=== PATIENT | male | born 1955 | race Caucasian/White ===

== ENCOUNTER 2018-12-01 16:42 | Observation (INO) | payer MEDICARE, OTHER ==
[~2018-12-01] VITALS: Ht 175.3 cm; Wt 93.5 kg
[2018-12-01] MEDS ORDERED: ASPIRIN 81 MG TABLET CHEW PO ONE (17:00)
[2018-12-01] MEDS ORDERED: SODIUM CHLORIDE FLUSH 10ML SYR IVF ONE (17:00)
[2018-12-01 17:14] LABS: BASOPHILS # (AUTO) 0.01 x10^3/uL (0-0.1); BASOPHILS % (AUTO) 0 % (0-1); EOSINOPHILS # (AUTO) 0.18 x10^3/uL (0-0.4); EOSINOPHILS % (AUTO) 2 % (1-7); LYMPHOCYTES # (AUTO) 1.43 x10^3/uL (1-3.4); LYMPHOCYTES % (AUTO) 16 % (22-44); MD NO; MEAN CORPUSCULAR HGB CONC 33.7 g/dL (33.2-36.2); MEAN CORPUSCULAR VOLUME 91.9 fL (81-97); MEAN PLATELET VOLUME 9.4 fL (7.4-10.4); MONOCYTES # (AUTO) 1.09 x10^3/uL (0.2-0.8); MONOCYTES % (AUTO) 12 % (2-9); NEUTROPHILS # (AUTO) 6.41 x10^3/uL (1.8-6.8); NEUTROPHILS % (AUTO) 70 % (42-75); PLATELET COUNT 139 x10^3/uL (130-400); RED BLOOD COUNT 4.02 x10^6/uL (4.38-5.82); RED CELL DISTRIBUTION WIDTH 14.9 % (9.4-14.8)
[2018-12-01] MEDS ORDERED: ASPIRIN 81 MG TABLET CHEW ONE (17:14)
[2018-12-01 17:26] LABS: ALBUMIN 3.7 g/dL (3.4-5.0); ANION GAP 6 mmol/L (5-15); CALCIUM 8.7 mg/dL (8.5-10.1); CHLORIDE 110 mmol/L (98-107); CREATININE 1.33 mg/dL (0.7-1.3)
[2018-12-01 17:30] LABS: TROPONIN I < 0.015 ng/mL (0.000-0.045)
[2018-12-01] MEDS ORDERED: ONDANSETRON 2MG/ML, 2ML IVPush PRN (18:30)
[2018-12-01] MEDS ORDERED: hydrALAzine 20 MG/ML, 1ML IVPush PRN (18:30)
[2018-12-01] MEDS ORDERED: SODIUM CHLORIDE FLUSH 10ML SYR IVF PRN (18:30)
[2018-12-01] MEDS ORDERED: ASPI-515 PO (18:45)
[2018-12-01] MEDS ORDERED: ATOR40TA PO (18:45)
[2018-12-01] MEDS ORDERED: METO-95 PO (18:45)
[2018-12-01] MEDS ORDERED: LOSA25TA25 PO ×2 (18:45)
[2018-12-01] MEDS ORDERED: NITR0.6T4 SL (18:46)
[2018-12-01] MEDS ORDERED: NITROGLYCERIN OINT 2%, 1GM TP ONE (18:50)
[2018-12-01] MEDS: NITROGLYCERIN OINT 2%, 1GM TP SCH (19:30)
[2018-12-01 20:15] VITALS: BP 144/86
[2018-12-01] MEDS ORDERED: LOSARTAN 25MG TABLET PO SCH (21:00)
[2018-12-01] MEDS ORDERED: ATORVASTATIN 40 MG TABLET PO SCH (21:00)
[2018-12-01] MEDS ORDERED: ASPIRIN 81 MG TABLET EC PO SCH (21:00)
[2018-12-01] MEDS ORDERED: METOPROLOL SUCCINATE 100 MG TAB.ER.24H PO SCH (21:00)
[2018-12-01 23:14] LABS: TROPONIN I < 0.015 ng/mL (0.000-0.045)
[2018-12-02 01:17] VITALS: BP 102/66
[2018-12-02] MEDS: NITROGLYCERIN OINT 2%, 1GM TP SCH ×3 (01:28→13:30)
[2018-12-02 05:56] LABS: BASOPHILS # (AUTO) 0.02 x10^3/uL (0-0.1); BASOPHILS % (AUTO) 0 % (0-1); EOSINOPHILS # (AUTO) 0.16 x10^3/uL (0-0.4); EOSINOPHILS % (AUTO) 2 % (1-7); LYMPHOCYTES # (AUTO) 1.43 x10^3/uL (1-3.4); LYMPHOCYTES % (AUTO) 19 % (22-44); MD NO; MEAN CORPUSCULAR HEMOGLOBIN 30.6 pg (27.5-34.5); MEAN CORPUSCULAR HGB CONC 33.2 g/dL (33.2-36.2); MEAN CORPUSCULAR VOLUME 92.1 fL (81-97); MEAN PLATELET VOLUME 9.5 fL (7.4-10.4); MONOCYTES # (AUTO) 1.06 x10^3/uL (0.2-0.8); MONOCYTES % (AUTO) 14 % (2-9); NEUTROPHILS # (AUTO) 4.88 x10^3/uL (1.8-6.8); NEUTROPHILS % (AUTO) 65 % (42-75); PLATELET COUNT 118 x10^3/uL (130-400); RED CELL DISTRIBUTION WIDTH 14.8 % (9.4-14.8)
[2018-12-02 06:05] LABS: ANION GAP 5 mmol/L (5-15); CALCIUM 8.8 mg/dL (8.5-10.1); CHLORIDE 111 mmol/L (98-107)
[2018-12-02 06:14] LABS: CREATININE 0.95 mg/dL (0.7-1.3); TROPONIN I < 0.015 ng/mL (0.000-0.045)
[2018-12-02 07:56] VITALS: BP 115/72
[2018-12-02] MEDS ORDERED: ASPIRIN 81 MG TABLET EC PO SCH (09:00)
[2018-12-02] MEDS ORDERED: OMNIPAQUE 350 MG/ML, 100ML BOTTLE ONE (09:11)
[2018-12-02] MEDS ORDERED: REGADENOSON 0.4 MG/5 ML SYRINGE ONE (10:27)
[2018-12-02 13:48] VITALS: BP 106/63
== END 2018-12-02 15:35 | disposition home or self-care (01) ==
LOC: ED 18:13 → EDIP 18:14 → ED 18:20 → 5SO 20:08 → DCLOUNGE 12-02 15:23
PROVIDERS: ADMIT Internal Medicine; ATTEND Internal Medicine
DX: I25.119 Atherosclerotic heart disease of native coronary artery with unspecified angina pectoris (principal); N17.9 Acute kidney failure, unspecified; E78.5 Hyperlipidemia, unspecified; I10 Essential (primary) hypertension; Z79.82 Long term (current) use of aspirin; Z82.49 Family history of ischemic heart disease and other diseases of the circulatory system; Z86.79 Personal history of other diseases of the circulatory system; Z87.891 Personal history of nicotine dependence; Z95.1 Presence of aortocoronary bypass graft
CPT/HCPCS: 36415; 71045; 71275; 78452; 80048; 82040; 83880; 84484; 85025; 85379; 93005; 93017; 99284; A9502; C9898; G0378; J2785; Q9967

== ENCOUNTER 2019-02-02 12:43 | Observation (INO) | payer MEDICARE, OTHER ==
[2019-02-01 11:40] VITALS: BP 96/69
[2019-02-01 12:17] LABS: ANION GAP 6 mmol/L (5-15); CALCIUM 8.7 mg/dL (8.5-10.1); CHLORIDE 109 mmol/L (98-107); CREATININE 1.17 mg/dL (0.7-1.3)
[2019-02-01 12:20] LABS: BASOPHILS # (AUTO) 0.02 x10^3/uL (0-0.1); BASOPHILS % (AUTO) 0 % (0-1); EOSINOPHILS # (AUTO) 0.12 x10^3/uL (0-0.4); EOSINOPHILS % (AUTO) 2 % (1-7); LYMPHOCYTES # (AUTO) 0.95 x10^3/uL (1-3.4); LYMPHOCYTES % (AUTO) 16 % (22-44); MD NO; MEAN CORPUSCULAR HEMOGLOBIN 29.5 pg (27.5-34.5); MEAN CORPUSCULAR HGB CONC 31.9 g/dL (33.2-36.2); MEAN CORPUSCULAR VOLUME 92.3 fL (81-97); MEAN PLATELET VOLUME 9.5 fL (7.4-10.4); MONOCYTES % (AUTO) 12 % (2-9); NEUTROPHILS # (AUTO) 4.02 x10^3/uL (1.8-6.8); NEUTROPHILS % (AUTO) 69 % (42-75); PLATELET COUNT 106 x10^3/uL (130-400); RED BLOOD COUNT 4.21 x10^6/uL (4.38-5.82); RED CELL DISTRIBUTION WIDTH 19.3 % (9.4-14.8)
[~2019-02-02] VITALS: Ht 172.7 cm; Wt 93.0 kg
[~2019-02-02 12:43] MED LIST: ASPI-515 PO; ATOR40TA PO; CHOL500045 PO; CYAN25009 PO; FERR-46 PO; ISOS30TA8 PO; LOSA25TA25 PO; METO-95 PO; METO100T5 PO; NITR0.6T4 SL
[2019-02-02] MEDS ORDERED: HEPARIN 1,000 UNITS/ML, 10ML ONE (14:12)
[2019-02-02] MEDS ORDERED: FENTANYL PF 100 MCG/2ML ONE (14:12)
[2019-02-02] MEDS ORDERED: VERAPAMIL 2.5 MG/ML, 2ML ONE (14:12)
[2019-02-02] MEDS ORDERED: LIDOCAINE-MPF 1%, 5ML ONE (14:12)
[2019-02-02] MEDS ORDERED: MIDAZOLAM 1 MG/ML, 5ML ONE (14:12)
[2019-02-02] MEDS ORDERED: TICAGRELOR 90 MG TABLET ONE (15:15)
[2019-02-02] MEDS ORDERED: BIVALIRUDIN 250 MG ONE (15:15)
[2019-02-02] MEDS ORDERED: ADENOSINE 6 MG/2 ML ONE (15:28)
[2019-02-02 18:42] VITALS: BP 123/78
[2019-02-02] MEDS: TICAGRELOR 90 MG TABLET PO SCH (20:46)
[2019-02-02] MEDS ORDERED: ASPIRIN 81 MG TABLET EC PO SCH (21:00)
[2019-02-02] MEDS ORDERED: LOSARTAN 25MG TABLET PO SCH (21:00)
[2019-02-02] MEDS ORDERED: ATORVASTATIN 40 MG TABLET PO SCH (21:00)
[2019-02-03 00:42] VITALS: BP 132/71
[2019-02-03 05:38] LABS: ANION GAP 7 mmol/L (5-15); CALCIUM 8.5 mg/dL (8.5-10.1); CHLORIDE 110 mmol/L (98-107)
[2019-02-03 06:45] VITALS: BP 143/87
[2019-02-03] MEDS ORDERED: TICA90TA PO (07:26)
[2019-02-03] MEDS: TICAGRELOR 90 MG TABLET PO SCH (08:54)
[2019-02-03] MEDS ORDERED: METOPROLOL SUCCINATE 100 MG TAB.ER.24H PO SCH (09:00)
[2019-02-03] MEDS ORDERED: CHOLECALCIFEROL 5,000u TAB PO SCH (09:00)
[2019-02-03] MEDS ORDERED: FERROUS SULFATE 325 MG TABLET PO SCH (09:00)
[2019-02-03] MEDS ORDERED: ISOSORBIDE MONONITRATE ER 30 MG TABLET PO SCH (09:00)
== END 2019-02-03 09:38 | disposition home or self-care (01) ==
LOC: CACL 12:43 → 5SO 16:50 → CACL 23:20 → 5SO 23:21 → DCLOUNGE 02-03 09:30
PROVIDERS: ADMIT Internal Medicine Cardiovascular Disease; ATTEND Internal Medicine Cardiovascular Disease
DX: I25.10 Atherosclerotic heart disease of native coronary artery without angina pectoris (principal); I10 Essential (primary) hypertension; E78.2 Mixed hyperlipidemia; I73.9 Peripheral vascular disease, unspecified; M19.90 Unspecified osteoarthritis, unspecified site; Z95.1 Presence of aortocoronary bypass graft; Z87.891 Personal history of nicotine dependence; Z88.6 Allergy status to analgesic agent; Z79.899 Other long term (current) drug therapy; Z79.82 Long term (current) use of aspirin
CPT/HCPCS: 36415; 80048; 85014; 85018; 85025; 93458; 99156; 99157; C1725; C1769; C1874; C1887; C1894; C9604; G0378; J0583; J1644; J2250; J3010; Q9967; J0153

== ENCOUNTER 2019-03-01 12:24 | Outpatient (CLI) | payer MEDICARE, OTHER | END 2019-03-01 23:59 | disposition home or self-care (01) | LOC: CVU 12:24 | PROVIDERS: ATTEND Internal Medicine Cardiovascular Disease | DX: I35.8 Other nonrheumatic aortic valve disorders (principal); I65.23 Occlusion and stenosis of bilateral carotid arteries; I10 Essential (primary) hypertension; I25.10 Atherosclerotic heart disease of native coronary artery without angina pectoris | CPT/HCPCS: 0399T; 93306; 93880 ==

== ENCOUNTER 2019-08-02 12:40 | Outpatient (CLI) | payer MEDICARE, OTHER ==
[~2019-08-02 12:40] MED LIST changes: +REGADENOSON 0.4 MG/5 ML SYRINGE ONE; +TICA90TA PO
== END 2019-08-02 23:59 | disposition home or self-care (01) ==
LOC: CFH 12:40
PROVIDERS: ATTEND Internal Medicine Cardiovascular Disease
DX: I25.5 Ischemic cardiomyopathy (principal); I10 Essential (primary) hypertension; I25.10 Atherosclerotic heart disease of native coronary artery without angina pectoris; I21.9 Acute myocardial infarction, unspecified
CPT/HCPCS: 78452; 93017; A9502; J2785

== ENCOUNTER 2019-11-12 10:41 | Emergency (ER) | payer MEDICARE, OTHER ==
[~2019-11-12] VITALS: Ht 172.7 cm; Wt 88.9 kg
[~2019-11-12 10:41] MED LIST changes: +ATOR-2 PO; +LEVO50TA PO; -REGADENOSON 0.4 MG/5 ML SYRINGE ONE
--- NOTE | 2019-11-12 11:30 | NUR ---
RIGHT FOOT WARM AND PINK. UNABLE TO PALPATE PEDAL PULSE. PT STATES THAT IS STANDARD FOR HIM
--- NOTE | 2019-11-12 11:33 | NUR ---
OFF FLOOR TO RADIOLOGY
[2019-11-12 12:24] VITALS: BP 122/70
--- NOTE | 2019-11-12 12:25 | NUR ---
break rn: back in room. US neg. 11/06 pain. NAD. call kwok in reach. at bedside. as
--- NOTE | 2019-11-12 13:00 | NUR ---
POSTERIOR TIBIALPULSE OBTAINED VIA DOPPLER
--- NOTE | 2019-11-12 13:09 | NUR ---
STANDARD BP AND ANKLE BP OBTAINED AND PROVIDED TO MD FOR DEMARCUS CALCULATION
== END 2019-11-12 13:46 | disposition home or self-care (01) ==
LOC: ED 11:00
DX: M79.651 Pain in right thigh (principal); E78.5 Hyperlipidemia, unspecified; I11.9 Hypertensive heart disease without heart failure; I25.810 Atherosclerosis of coronary artery bypass graft(s) without angina pectoris
CPT/HCPCS: 99284

== ENCOUNTER → 2020-01-03 | Outpatient (CLI) | payer MEDICARE, OTHER | END | disposition home or self-care (01) | LOC: CVU 06:54 | PROVIDERS: ATTEND Internal Medicine Cardiovascular Disease | DX: I70.213 Atherosclerosis of native arteries of extremities with intermittent claudication, bilateral legs (principal); I65.23 Occlusion and stenosis of bilateral carotid arteries; I65.21 Occlusion and stenosis of right carotid artery; I10 Essential (primary) hypertension; E78.5 Hyperlipidemia, unspecified; I25.10 Atherosclerotic heart disease of native coronary artery without angina pectoris | CPT/HCPCS: 93880; 93924; 93925 ==

== ENCOUNTER 2020-05-08 11:41 | Observation (INO) | payer MEDICARE, OTHER ==
[~2020-05-08] VITALS: Ht 172.7 cm; Wt 85.2 kg
[2020-05-08] MEDS ORDERED: VITAMIN D PO (13:03)
[2020-05-08] MEDS ORDERED: ATOR20TA37 PO (13:03)
[2020-05-08] MEDS ORDERED: ALBU18HF INH (13:03)
[2020-05-08] MEDS ORDERED: ASPI81TA45 PO (13:03)
[2020-05-08] MEDS ORDERED: PANT40TA6 PO (13:03)
[2020-05-08 13:09] VITALS: BP 98/63
[2020-05-08 13:25] LABS: ANION GAP 6 mmol/L (5-15); CALCIUM 8.5 mg/dL (8.5-10.1); CHLORIDE 111 mmol/L (98-107); CREATININE 0.96 mg/dL (0.7-1.3)
[2020-05-08] MEDS ORDERED: FENTANYL PF 100 MCG/2ML ONE (14:14)
[2020-05-08] MEDS ORDERED: MIDAZOLAM 1 MG/ML, 5ML ONE (14:14)
[2020-05-08 14:15] LABS: MEAN CORPUSCULAR HEMOGLOBIN 31.2 pg (27.5-34.5); MEAN CORPUSCULAR HGB CONC 32.5 g/dL (33.2-36.2); MEAN CORPUSCULAR VOLUME 95.8 fL (81-97); MEAN PLATELET VOLUME 9.5 fL (7.4-10.4); PLATELET COUNT 73 x10^3/uL (130-400); RED BLOOD COUNT 4.45 x10^6/uL (4.38-5.82)
[2020-05-08] MEDS ORDERED: LIDOCAINE-MPF 1%, 5ML ONE (14:15)
[2020-05-08] MEDS ORDERED: BIVALIRUDIN 250 MG ONE (14:15)
[2020-05-08] MEDS ORDERED: TICAGRELOR 90 MG TABLET ONE (14:15)
[2020-05-08] MEDS ORDERED: HEPARIN 1,000 UNITS/ML, 10ML ONE (14:15)
[2020-05-08] MEDS ORDERED: VERAPAMIL 2.5 MG/ML, 2ML ONE (14:15)
[2020-05-08] MEDS ORDERED: NITROGLYCERIN 30 MCG/ML, 20ML VIAL ONE (14:17)
[2020-05-08 14:30] LABS: BASOPHILS # (AUTO) 0.02 x10^3/uL (0-0.1); BASOPHILS % (AUTO) 0 % (0-1); EOSINOPHILS # (AUTO) 0.15 x10^3/uL (0-0.4); EOSINOPHILS % (AUTO) 2 % (1-7); LYMPHOCYTES # (AUTO) 0.86 x10^3/uL (1-3.4); LYMPHOCYTES % (AUTO) 13 % (22-44); MD SCAN; MONOCYTES # (AUTO) 0.79 x10^3/uL (0.2-0.8); MONOCYTES % (AUTO) 12 % (2-9); NEUTROPHILS # (AUTO) 4.74 x10^3/uL (1.8-6.8); NEUTROPHILS % (AUTO) 72 % (42-75)
[2020-05-08] MEDS ORDERED: LIDOCAINE 1%, 20ML ONE (15:02)
[2020-05-08] MEDS ORDERED: ALBUTEROL HFA 90 MCG/SPRAY INH PRN (16:00)
[2020-05-08] MEDS: SODIUM CHLORIDE 0.9% 1,000 ML IV SCH ×2 (16:16→23:47)
[2020-05-08 17:32] VITALS: BP 113/67
[2020-05-08 19:51] VITALS: BP 116/74
[2020-05-08] MEDS: TICAGRELOR 90 MG TABLET PO SCH (20:02)
[2020-05-08] MEDS ORDERED: ATORVASTATIN 20 MG TABLET PO SCH (21:00)
[2020-05-08] MEDS ORDERED: LOSARTAN 25MG TABLET PO SCH (21:00)
[2020-05-09 01:05] VITALS: BP 117/68
[2020-05-09 04:35] LABS: ANION GAP 4 mmol/L (5-15); CALCIUM 8.6 mg/dL (8.5-10.1); CHLORIDE 111 mmol/L (98-107); CREATININE 1.01 mg/dL (0.7-1.3)
[2020-05-09] MEDS ORDERED: LEVOTHYROXINE 50 MCG TABLET PO SCH (06:00)
[2020-05-09] MEDS: SODIUM CHLORIDE 0.9% 1,000 ML IV SCH (07:00)
[2020-05-09 07:23] VITALS: BP 148/75
[2020-05-09] MEDS ORDERED: METOPROLOL SUCCINATE 100 MG TAB.ER.24H PO SCH (09:00)
[2020-05-09] MEDS ORDERED: ISOSORBIDE MONONITRATE ER 60 MG TABLET PO SCH (09:00)
[2020-05-09] MEDS ORDERED: ASPIRIN 81 MG TABLET EC PO SCH (09:00)
[2020-05-09] MEDS ORDERED: PANTOPRAZOLE 40MG TABLET PO SCH (09:00)
[2020-05-09] MEDS: TICAGRELOR 90 MG TABLET PO SCH (09:26)
== END 2020-05-09 10:04 | disposition home or self-care (01) ==
LOC: CACL 11:41 → 5SO 15:49 → CACL 15:49 → 5SO 16:04 → DCLOUNGE 05-09 09:57
PROVIDERS: ADMIT Internal Medicine Cardiovascular Disease; ATTEND Internal Medicine Cardiovascular Disease
DX: I25.10 Atherosclerotic heart disease of native coronary artery without angina pectoris (principal); I73.9 Peripheral vascular disease, unspecified; I67.9 Cerebrovascular disease, unspecified; I42.9 Cardiomyopathy, unspecified; J43.9 Emphysema, unspecified; I10 Essential (primary) hypertension; E78.2 Mixed hyperlipidemia; E03.9 Hypothyroidism, unspecified; Z95.1 Presence of aortocoronary bypass graft; Z79.82 Long term (current) use of aspirin; Z79.899 Other long term (current) drug therapy
CPT/HCPCS: 36415; 80048; 85014; 85018; 85025; 93459; 99156; 99157; C1725; C1769; C1874; C1887; C1894; C9604; G0378; J0583; J1644; J2250; J3010; J3490; Q9967

== ENCOUNTER → 2020-05-24 | Outpatient (CLI) | payer MEDICARE, OTHER ==
[~2020-05-24] MED LIST changes: +ALBU18HF INH; +ASPI81TA45 PO; +ATOR20TA37 PO; +PANT40TA6 PO; +VITAMIN D PO
== END | disposition home or self-care (01) ==
LOC: CFH 08:21
PROVIDERS: ATTEND Internal Medicine
DX: I65.21 Occlusion and stenosis of right carotid artery (principal); R20.2 Paresthesia of skin
CPT/HCPCS: 70450